=== PATIENT | female | born 1965 | race Caucasian/White ===

== ENCOUNTER 2016-06-07 21:05 | Emergency (ER) | payer MEDICARE ==
[2016-06-07] MEDS ORDERED: hydrOXYzine HCL TAB* 25 MG PO ONE (21:49)
--- NOTE | 2016-06-07 21:58 | ED ---
HPI Chest Pain - HPI Summary HPI Summary: The patient is a 50 year old female presenting for symptoms of anxiety since undergoing right breast biopsy Saturday awaiting results. Reports trying edible marijuana in brownie form approximately 1.5 hours ago. Approximately 30 minutes prior to arrival she began experiencing symptoms of shivers, flushed skin, dry throat, racing heart, chest heaviness, nausea, and inappropriate fear. Denies preceding fever, diaphoresis, headache, neck or jaw pain, cough, sputum production, wheezing, hemoptysis, abdominal pain, vomiting, diarrhea change in voiding, dysuria, hematuria, peripheral edema, unilateral calf pain or swelling. History of HTN "diet and exercise" controlled. Is prescribed klonopin for anxiety but has not tried taking this medication tonight. S/P left clavicle ORIF, left hip graft, and left foot ORIF. Mother and brother with DM. SH: Denies smoking. Rare alcohol use. No IVDU. - History of Current Complaint Time Seen by Provider: 06/07/16 21:37 - Allergy/Home Medications Allergies/Adverse Reactions: Allergies Allergy/AdvReac Type Severity Reaction Status Date / Time Ibuprofen Allergy Mild See Comment Verified 06/04/16 09:49 Poison Jeanien Extract/Poison Allergy Unknown Unknown Verified 06/04/16 09:49 [place] Extra Reaction Details PMH/Surg Hx/FS Hx/Imm Hx Endocrine/Hematology History: Denies: Hx Anticoagulant Therapy, Hx Diabetes, Hx Thyroid Disease Cardiovascular History: Reports: Hx Hypertension Denies: Hx Pacemaker/ICD Respiratory History: Reports: Hx Asthma - not taking meds Denies: Hx Chronic Obstructive Pulmonary Disease (COPD) GI History: Denies: Hx Ulcer Musculoskeletal History: Reports: Hx Back Problems Sensory History: Denies: Hx Hearing Aid Psychiatric History: Denies: Hx Panic Disorder - Cancer History Hx Chemotherapy: No Hx Radiation Therapy: No - Surgical History Surgery Procedure, Year, and Place: 2009 Collar bone repair - [place]. 2006 LEFT foot repair. Rt SHOULDER- CYST(BENIGN) REMOVED-2007 Infectious Disease History: Denies: Hx Hepatitis, Hx Human Immunodeficiency Virus (HIV) - Family History Known Family History: Positive: Unknown - Social History Alcohol Use: Weekly Alcohol Amount: 2 X A MONTH Substance Use Type: Reports: Prescribed Smoking Status (MU): Never Smoked Tobacco Have You Smoked in the Last Year: No Review of Systems Constitutional: Negative Eyes: Negative ENT: Negative Positive: Palpitations, Chest Pain Respiratory: Negative Positive: Nausea Genitourinary: Negative Musculoskeletal: Negative Positive: Other - flushed Neurological: Negative Positive: Anxious All Other Systems Reviewed And Are Negative: Yes Physical Exam Triage Information Reviewed: Yes Vital Signs Reviewed: Yes Appearance: Positive: Well-Appearing, No Pain Distress, Well-Nourished Skin: Positive: Warm, Skin Color Reflects Adequate Perfusion, Dry Head/Face: Positive: Normal Head/Face Inspection Eyes: Positive: Normal, EOMI, BRITNI, Conjunctiva Clear ENT: Positive: Normal ENT inspection, Hearing grossly normal, Pharynx normal. Negative: Pharyngeal erythema Neck: Positive: Supple, Nontender, No Lymphadenopathy, Other: - no thyromegaly Respiratory/Lung Sounds: Positive: Clear to Auscultation, Breath Sounds Present. Negative: Decreased Breath Sounds, Rales, Rhonchi, Wheezes Cardiovascular: Positive: Normal, RRR, Pulses are Symmetrical in both Upper and Lower Extremities, Other - nontender, S1, S2. Negative: Murmur, Rub Abdomen Description: Positive: Nontender, No Organomegaly. Negative: CVA Tenderness (R), CVA Tenderness (L), Distended, Guarding, Hepatomegaly, Splenomegaly Bowel Sounds: Positive: Present Musculoskeletal: Positive: Normal - AROM all extremities. Negative: Lluvia Sign Left, Lluvia Sign Right Neurological: Positive: Normal, Alert, Oriented to Person Place, Time, Facial Symmetry, Speech Normal Psychiatric: Positive: Anxious AVPU Assessment: Alert Diagnostics - Laboratory Result Diagrams: 06/07/16 23:20 06/07/16 23:20 Lab Statement: Any lab studies that have been ordered have been reviewed, and results considered in the medical decision making process. Chest Pain Course/Dx - Course Assessment/Plan: Patient is a 50 female presenting with symptoms after ingesting edible cannabinoid. EKG NSR without acute ischemia. Labs reviewed and grossly unremarkable not requiring any emergent intervention. Patient advised to avoid recreational substances. Advised to take BZD as prescribed by PCP for anxiety. Patient to followup with PCP in 5-7 days. - Diagnoses Provider Diagnoses: Anxiety, Palpitations, Cannabis abuse Discharge - Discharge Plan Condition: Stable Disposition: HOME Patient Education Materials: Palpitations (ED), Cannabis Abuse (ED), Anxiety ( ED) Referrals: Jeffery Ellis DO [Primary Care Provider] -
[2016-06-07 23:35] LABS: Hematocrit 36 % (35-47); Hemoglobin 12.2 g/dl (12.0-16.0); Mean Corpuscular HGB Conc 34 g/dl (31-36); Mean Corpuscular Hemoglobin 29 pg (27-31); Mean Corpuscular Volume 86 fL (80-97); Mean Platelet Volume 8 um3 (7.4-10.4); Red Blood Count 4.19 10^6/ul (4.0-5.4); Red Cell Distribution Width 14 % (10.5-15); White Blood Count 11.7 10^3/ul (3.5-10.8)
[2016-06-07 23:46] LABS: BUN/Creatinine Ratio 19.3 (8-20); EGFR African American 87.8 (>60); EGFR Non-African American 68.3 (>60); Potassium 3.7 mmol/L (3.5-5.0)
[2016-06-08 00:32] LABS: TSH (Thyroid Stimulating Horm) 1.43 mcIU/mL (0.34-5.60)
[2016-06-08 01:26] VITALS: BP 138/71
== END 2016-06-08 01:30 | disposition home or self-care (01) ==
LOC: ED 21:05
DX: F41.9 Anxiety disorder, unspecified (principal); R00.2 Palpitations; F12.10 Cannabis abuse, uncomplicated; I10 Essential (primary) hypertension
CPT/HCPCS: 36415; 80048; 83735; 84443; 85025; 93005; 99283; A9270-GY

== ENCOUNTER → 2016-09-28 06:53 | Day surgery (SDC) | payer MEDICARE ==
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
[~2016-09-28 06:53] MED LIST: Aspirin Low Dose CHEW TAB* 81 MG PO SCH; Buffered Lidocaine 1% SYRIN* 5 ML/SYR SYRINGE ONE; Bupivacaine 0.5% SDV PF* 30 ML VIAL ONE; Bupivacaine 0.5% W/EPI SDV* 30 ML VIAL ONE; Lidocaine 1% INJ* 10 MG/ML 30 ML SDV ONE; Lidocaine 2% PF * 5 ML VIAL ONE; Lidocaine 2.5%/Prilocain 2.5%* 5 GM TUBE ONE; Midazolam* 1 MG/ML 2 ML VIAL (2 MG) ONE; Midazolam* 1 MG/ML 5 ML VIAL (5 MG) ONE; Ondansetron INJ* 2 MG/ML VIAL IV PRN; Propofol* 10 MG/ML 20 ML BTL IV PUSH ONE; Sodium Citrate/Citric Acid* 15 ML UDC ONE; Sodium Citrate/Citric Acid* 15 ML UDC PO ONE; ceFAZolin 2 GM PREMIX(*) 2 GM/50 ML BAG IVPB ONE; fentaNYL* 50 MCG/ML 2 ML VIAL (100 MCG VIAL) IV PRN; fentaNYL* 50 MCG/ML 2 ML VIAL (100 MCG VIAL) ONE; oxyCODONE/Acetamin 5/325 MG* TAB PO PRN
[2016-09-28 07:23] LABS: Manual Entry Verification MR; UR Preg Internal Control QC Line Present
--- NOTE | 2016-09-28 09:23 | RAD ---
INDICATION: Right breast needle localization. COMPARISON: Comparison is made with prior mammograms from September 28, 2016. TECHNIQUE: The benefits and risks of the procedure were explained to the patient. The patient consented to the exam. A timeout was performed before beginning the procedure. The patient was prepped in the usual sterile fashion. The breast was anesthetized with buffered lidocaine. Using digital mammographic guidance a needle was placed immediately between the localization clip from the prior stereotactic biopsy and the small cluster of microcalcifications at the 12:00 position in the right breast. This was exchanged for a Hawkin's type wire. Postprocedure mammograms demonstrate that the wire is in appropriate position located approximately 3 to 4 mm away from the tissue localization clip and cluster of microcalcifications. The patient tolerated the procedure without incident. IMPRESSION: SUCCESSFUL NEEDLE LOCALIZATION PROCEDURE.
[2016-09-28 12:24] VITALS: BP 137/86
--- NOTE | 2016-09-29 00:51 | OP ---
CC: [facility]; Jeffery Ellis DO OPERATIVE REPORT: DATE OF OPERATION: 09/28/16 DATE OF : 67 SURGEON: Gbabie Hunter MD CENTRAL SUPPLY TECHNICIAN: No it assistant for this case. PRE-OP DIAGNOSIS: Right breast mammographic abnormality. POST-OP DIAGNOSIS: Right breast mammographic abnormality. OPERATIVE PROCEDURE: Needle localization, excision of right breast mammographic abnormality. INDICATIONS: This patient is a 50-year-old woman who presented to the office with a recently identi fied mammographic abnormality, which had been biopsied and shown to have some abnormalities that req uired further excision. She was reluctant to undergo surgery at first and waited on repeat mammogra m to confirm the presence of the abnormality but once that did, she agreed to surgery. DESCRIPTION OF PROCEDURE: On the morning of the surgery, she underwent needle localization without difficulty and then brought to the operating room. She was placed on the OR table in the supine pos ition and given IV sedation. The right breast was prepped and draped in the usual sterile fashion. After infiltrating with local anesthetic, an incision was made in an elliptical fashion around the wire and subcutaneous tissue was divided with electrocautery and sharp dissection to excise the mass of tissue from around the wire. Initially, the specimen was transected in a place that did not inc lude the tip of the wire, so additional tissue was removed from posterior that included the tip of t he wire. Then since the tissue had been partially transected, it was completely transected and sent as 2 specimens, the first one with the usual markings and the second one with markings indicating i ts position adjacent to the first specimen. Hemostasis was assured with electrocautery. The wound was irrigated copiously with saline and then additional local was instilled into the wound and closu re was accomplished with 3-0 Polysorb in the subcutaneous layer and the skin was closed with 4-0 Molina gipro in a subcuticular fashion. Steri-Strips and dry sterile dressing were applied. All sponge an d instrument counts were correct. The patient tolerated the procedure well and was transferred to [facility] in a stable condition. [id number]/[facility] #: [id number]
== END | disposition home or self-care (01) ==
LOC: SDS 06:53
PROVIDERS: ATTEND Surgery
DX: R92.0 Mammographic microcalcification found on diagnostic imaging of breast (principal); I10 Essential (primary) hypertension
CPT/HCPCS: 81025; 88307; A9270-GY; J0690; J2001; J2250; J2704; J3010

== ENCOUNTER 2016-10-21 11:36 | Emergency (ER) | payer MEDICARE ==
[2016-10-21 12:02] VITALS: BP 162/78
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
== END 2016-10-21 12:30 | disposition home or self-care (01) ==
LOC: UCEAST 11:36
DX: S30.861A Insect bite (nonvenomous) of abdominal wall, initial encounter (principal); W57.XXXA Bitten or stung by nonvenomous insect and other nonvenomous arthropods, initial encounter; Y93.9 Activity, unspecified; Y92.9 Unspecified place or not applicable; Y99.9 Unspecified external cause status; I10 Essential (primary) hypertension
CPT/HCPCS: 99212; G0463

== ENCOUNTER 2017-02-13 08:16 | Emergency (ER) | payer MEDICARE, OTHER ==
--- NOTE | 2017-02-13 10:07 | UC ---
Respiratory Complaint HPI - HPI Summary HPI Summary: SEVERAL DAYS OF DRAINAGE, SINUS PRESSURE, EAR PAIN, ST AND MILD COUGH. NO FEVER , N/V/D. - History of Current Complaint Chief Complaint: UCRespiratory Stated Complaint: CONGESTION SORE THROAT EAR PAIN Time Seen by Provider: 02/13/17 09:49 Hx Obtained From: Patient Hx Last Menstrual Period: 02/07/17 Onset/Duration: Gradual Onset, Lasting Days, Still Present Severity Initially: Moderate Severity Currently: Moderate Pain Intensity: 2 Pain Scale Used: 0-10 Numeric Character: Cough: Nonproductive Aggravating Factors: Nothing Alleviating Factors: Nothing Associated Signs And Symptoms: Positive: URI, Nasal Congestion, Sinus Discomfort. Negative: Fever, Chills, Pleuritic Chest Pain, Wheezing - Allergies/Home Medications Allergies/Adverse Reactions: Allergies Allergy/AdvReac Type Severity Reaction Status Date / Time Poison Jeanine Extract/Poison Allergy Severe Blisters Verified 02/13/17 08:47 [place] Extra Ibuprofen Allergy Intermediate See Comment Verified 02/13/17 08:47 PMH/Surg Hx/FS Hx/Imm Hx Cardiovascular History: Hypertension Respiratory History: Asthma Other History Of: Negative For: Anticoagulant Therapy - Surgical History Surgical History: Yes Surgery Procedure, Year, and Place: 2009 Collar bone repair - METAL ILANA INSERTED - [place]. LEFT FOOT SURGERY- 1996- [facility] [place]. RIGHT NECK/ SHOULDER- CYST(BENIGN ) REMOVED-2007- [place]. LEFT FX CLAVICLE WITH BONE HAVESTED FROM LEFT HIP 1988 [place] - Family History Known Family History: Positive: Hypertension - Social History Alcohol Use: Occasionally Alcohol Amount: 2 X A MONTH Substance Use Type: None Substance Use Comment - Amount & Last Used: last use this date Smoking Status (MU): Never Smoked Tobacco Have You Smoked in the Last Year: No Review of Systems Constitutional: Negative ENT: Sore Throat, Ear Ache, Nasal Discharge Respiratory: Cough Cardiovascular: Negative Gastrointestinal: Negative All Other Systems Reviewed And Are Negative: Yes Physical Exam Triage Information Reviewed: Yes Appearance: Well-Appearing, No Pain Distress, Well-Nourished Vital Signs: Initial Vital Signs Temp 98.8 F 02/13/17 08:42 Pulse 68 02/13/17 08:42 Resp 20 02/13/17 08:42 Pulse Ox 100 02/13/17 08:42 Vital Signs Reviewed: Yes Eyes: Positive: Conjunctiva Clear ENT: Positive: Hearing grossly normal, Pharynx normal, Other: - RIGHT TM NORMAL. LEFT TM RETRACTED Neck: Positive: Supple, Nontender, No Lymphadenopathy Respiratory Exam: Normal Cardiovascular Exam: Normal Abdomen Description: Positive: Soft Musculoskeletal: Positive: No Edema Neurological: Positive: Alert Psychological: Positive: Age Appropriate Behavior Skin: Negative: rashes UC Diagnostic Evaluation - Laboratory O2 Sat by Pulse Oximetry: 100 Respiratory Course/Dx - Differential Dx/Diagnosis Provider Diagnoses: ACUTE URI Discharge - Discharge Plan Condition: Stable Disposition: HOME Patient Education Materials: Upper Respiratory Infection (ED) Referrals: Jeffery Ellis DO [Primary Care Provider] - If Needed Additional Instructions: YOUR SYMPTOMS ARE LIKELY VIRALLY MEDIATED AND WILL RESOLVE WITH TIME. NO INDICATION FOR ANTIBIOTICS AT PRESENT. REST, HYDRATE, OTC MEDS NEEDED. TRY OTC AFRIN FOR NASAL CONGESTION. OKAY TO USE 2-3 SPRAYS IN EACH NOSTRIL UP TO 2 TIMES DAILY. DO NOT USE FOR MORE THAN 3-4 CONSECUTIVE DAYS TO PREVENT DEVELOPING REBOUND CONGESTION. IF YOU ARE NOT IMPROVING OVER THE NEXT SEVERAL DAYS FOLLOW-UP WITH YOUR PCP OR YOU MAY CALL ME HERE ON SATURDAY FROM 7AM-2:30PM OR SATURDAY/SATURDAY 2:30PM-10PM.
== END 2017-02-13 10:15 | disposition home or self-care (01) ==
LOC: UCEAST 08:16
DX: J06.9 Acute upper respiratory infection, unspecified (principal); J45.909 Unspecified asthma, uncomplicated; I10 Essential (primary) hypertension; Z88.6 Allergy status to analgesic agent
CPT/HCPCS: 99211; G0463

== ENCOUNTER 2017-10-29 23:45 | Emergency (ER) | payer MEDICARE, OTHER ==
[2017-10-30 01:11] VITALS: BP 147/89
--- NOTE | 2017-10-30 01:22 | ED ---
Carolee Boyd Rebecca, scribed for Abad Murrell MD on 10/30/17 at 0018 . Complex/Multi-Sys Presentation - HPI Summary HPI Summary: Pt is a 52 y/o F BIBA who presents to ED c/o anxiety and elevated BP. Reports that she took a half a hydrocodone at noon (about 12 hours [employer]) for chronic back pain and that she "felt like I was racing after that." Has not taken Hydrocodone in multiple weeks and has had previous poor reactions. Then, upon laying down tonight to go to bed she began feeling anxious. States that she gets anxiety easily and has had elevated BP with anxiety previously. PMHx HTN in the past for which she had previously been on medication, though has been controlling it with dietary changes. Recently, her BP has been about 125/77. - History Of Current Complaint Chief Complaint: EDDizziness Time Seen by Provider: 10/29/17 23:56 Hx Obtained From: Patient Onset/Duration: Still Present Severity Currently: None Location: Pain At: - Negative Associated Signs And Symptoms: Positive: Other - Anxiety, elevated BP - Allergies/Home Medications Allergies/Adverse Reactions: Allergies Allergy/AdvReac Type Severity Reaction Status Date / Time ibuprofen Allergy Unknown Verified 10/30/17 00:12 Reaction Details poison nay extract Allergy Unknown Verified 10/30/17 00:13 Reaction Details PMH/Surg Hx/FS Hx/Imm Hx Endocrine/Hematology History: Denies: Hx Anticoagulant Therapy, Hx Diabetes, Hx Thyroid Disease Cardiovascular History: Reports: Hx Hypertension Denies: Hx Pacemaker/ICD, Other Cardiovascular Problems/Disorders Respiratory History: Reports: Hx Asthma - HX OF, NO LONGER TAKING RX Denies: Hx Chronic Obstructive Pulmonary Disease (COPD), Other Respiratory Problems/Disorders GI History: Denies: Hx Ulcer, Other GI Disorders Musculoskeletal History: Reports: Hx Arthritis - right knee, left foot, back, Hx Back Problems Sensory History: Reports: Hx Contacts or Glasses - GLASSES Denies: Hx Hearing Aid Opthamlomology History: Reports: Hx Contacts or Glasses - GLASSES Neurological History: Denies: Other Neuro Impairments/Disorders Psychiatric History: Reports: Hx Anxiety - with stressful times Denies: Hx Panic Disorder - Cancer History Hx Chemotherapy: No Hx Radiation Therapy: No - Surgical History Surgery Procedure, Year, and Place: 2009 Collar bone repair - METAL ILANA INSERTED - [place]. LEFT FOOT [place]- [place] [facility] [place]ECK/ SHOULDER- CYST(BENIGN ) REMOVED-2007- [facility]. LEFT FX CLAVICLE WITH BONE HAVESTED FROM LEFT HIP 1988 [facility] Hx Anesthesia Reactions: No Infectious Disease History: No Infectious Disease History: Denies: Hx Hepatitis, Hx Human Immunodeficiency Virus (HIV), Traveled Outside the [place] in Last 30 Days - Family History Known Family History: Positive: Hypertension - Social History Alcohol Use: Occasionally Alcohol Amount: 2 X A MONTH Substance Use Type: Reports: None Substance Use Comment - Amount & Last Used: last use this date Smoking Status (MU): Never Smoked Tobacco Have You Smoked in the Last Year: No Review of Systems Positive: Other - Elevated BP Positive: Anxious All Other Systems Reviewed And Are Negative: Yes Physical Exam - Summary Physical Exam Summary: Appearance: Well appearing, no pain distress Skin: warm, dry, reflects adequate perfusion Head/face: normal Eyes: EOMI, BRITNI ENT: normal Neck: supple, non-tender Respiratory: CTA, breath sounds present Cardiovascular: RRR, pulses symmetrical Abdomen: non-tender, soft Bowel Sounds: present Musculoskeletal: normal, strength/ROM intact Neuro: normal, sensory motor intact, A&Ox3 Triage Information Reviewed: Yes Vital Signs On Initial Exam: Initial Vitals Temp Pulse Resp BP Pulse Ox 98.9 F 75 14 197/96 99 10/30/17 00:10 10/30/17 00:10 10/30/17 00:10 10/30/17 00:10 10/30/17 00:10 Vital Signs Reviewed: Yes Diagnostics - Vital Signs Vital Signs Temp Pulse Resp BP Pulse Ox 10/30/17 00:10 98.9 F 75 14 197/96 99 - Laboratory Lab Statement: Any lab studies that have been ordered have been reviewed, and results considered in the medical decision making process. - EKG 0020 Cardiac Rate: NL - 70 bpm EKG Rhythm: Sinus Rhythm ST Segment: Normal - normal except for isolated flipped T wave lead 3 EKG Interpretation: nl axis and intervals Re-Evaluation - Re-Evaluation First Eval Re-Evaluation Time: 00:36 Change: Improved Comment: Pt is feeling better. Her BP is down to 169 and her anxiety has decreased. She will follow up with her PCP. Complex Multi-Symp Course/Dx Course Of Treatment: Patient presented by ambulance after feeling poorly post- taking hydrocodone. She feels as though this flared her anxiety. She doesn't like to take any medications. Her blood pressures grossly elevated and she is a little anxious here. She refused any testing aside from an EKG as she was starting to feel better. EKG was largely normal. Her blood pressure spontaneously improved to 165 systolic. She will follow this up with her primary care physician. - Diagnoses Provider Diagnoses: Anxiety, HTN (hypertension), Medication side effect Discharge - Sign-Out/Discharge Documenting (check all that apply): Discharge/Admit/Transfer - Discharge Plan Condition: Improved Disposition: HOME Patient Education Materials: Anxiety (ED) Referrals: Jeffery Ellis DO [Primary Care Provider] - Additional Instructions: Call your doctor first thing in the morning to follow-up. He will need a blood pressure recheck this week. Return if worse, new symptoms or other concerns. Avoid the medication they gave your problems. - Billing Disposition and Condition Condition: IMPROVED Disposition: Home The documentation as recorded by the Carolee chavis Rebecca accurately reflects the service I personally performed and the decisions made by me, Abad Murrell MD.
== END 2017-10-30 01:09 | disposition home or self-care (01) ==
LOC: ED 23:45
DX: F41.9 Anxiety disorder, unspecified (principal); T40.2X5A Adverse effect of other opioids, initial encounter; Y92.9 Unspecified place or not applicable; I10 Essential (primary) hypertension; J45.909 Unspecified asthma, uncomplicated; Z88.6 Allergy status to analgesic agent; Z82.49 Family history of ischemic heart disease and other diseases of the circulatory system
CPT/HCPCS: 93005; 99282

== ENCOUNTER → 2018-02-04 | Emergency (ER) | payer MEDICARE, OTHER ==
[2018-02-04 15:30] VITALS: BP 130/80
== END | disposition left against medical advice (07) ==
LOC: ED 13:17
DX: I10 Essential (primary) hypertension (principal); R42 Dizziness and giddiness; Z53.21 Procedure and treatment not carried out due to patient leaving prior to being seen by health care provider
CPT/HCPCS: 93005

== ENCOUNTER 2018-11-29 12:11 | Emergency (ER) | payer MEDICARE, OTHER ==
[2018-11-29 12:24] VITALS: BP 00/00
--- NOTE | 2018-11-29 12:29 | UC ---
Skin Complaint HPI - HPI Summary HPI Summary: 53-year-old female who has 2 bug bites on her back which she wanted checked for ticks although she does not recall have any ticks present. She denies any symptoms of illness. - History of Current Complaint Chief Complaint: UCSkin Time Seen by Provider: 11/29/18 12:26 Stated Complaint: TICK BITE Hx Obtained From: Patient Hx Last Menstrual Period: 02/07/17 ?: No Onset/Duration: Other - Patient just wanted to be checked for ticks on her back. Skin Exposure Onset/Duration: Hours Ago Timing: Constant Onset Severity: Mild Current Severity: None Pain Intensity: 2 Location: Other - Upper back. Character: Pruritus Aggravating Factor(s): Nothing Alleviating Factor(s): Nothing Related History: Insect Bite/Sting - Allergy/Home Medications Allergies/Adverse Reactions: Allergies Allergy/AdvReac Type Severity Reaction Status Date / Time ibuprofen Allergy Unknown Verified 11/29/18 12:24 Reaction Details poison nay extract Allergy Unknown Verified 11/29/18 12:24 Reaction Details PMH/Surg Hx/FS Hx/Imm Hx Previously Healthy: Yes Cardiovascular History: Hypertension Respiratory History: Asthma Other History Of: Negative For: Anticoagulant Therapy - Surgical History Surgical History: Yes Surgery Procedure, Year, and Place: 2009 Collar bone repair - METAL ILANA INSERTED - [place]. LEFT FOOT SURGERY- 1996- [facility] [place]. RIGHT NECK/ SHOULDER- CYST(BENIGN ) REMOVED-2007- [facility]. LEFT FX CLAVICLE WITH BONE HAVESTED FROM LEFT HIP 1988 [place] - Family History Known Family History: Positive: Hypertension - Social History Alcohol Use: Occasionally Alcohol Amount: 2 X A MONTH Substance Use Type: None Substance Use Comment - Amount & Last Used: last use this date Smoking Status (MU): Never Smoked Tobacco Have You Smoked in the Last Year: No Review of Systems All Other Systems Reviewed And Are Negative: Yes Skin: Positive: Other - Patient has 2 areas on her back she would like to be checked for ticks. Is Patient Immunocompromised?: No Physical Exam Triage Information Reviewed: Yes Appearance: Well-Appearing, No Pain Distress, Well-Nourished Vital Signs: Initial Vital Signs Temp 98 F 11/29/18 12:19 Pulse 100 11/29/18 12:19 Resp 20 11/29/18 12:19 BP 00/00 11/29/18 12:19 Pulse Ox 100 11/29/18 12:19 Vital Signs Reviewed: Yes Skin: Positive: Other - The 2 areas of concern appear to be one very small scabbed area to the left side of her back which looks more like a pimple that she may have scratched. The other area of concern appears to be more of a mosquito bite on her right upper back. I do not believe these are tick bites. Course/Dx - Course Course Of Treatment: Patient is comfortable here she just needed reassurance that she did not have any ticks embedded in her skin. I believe the areas concern are bug bites and not tick bites. - Diagnoses Provider Diagnosis: Insect bite Discharge - Sign-Out/Discharge Documenting (check all that apply): Patient Departure All imaging exams completed and their final reports reviewed: No Studies - Discharge Plan Condition: Good Disposition: HOME Patient Education Materials: Insect Bite or Sting (ED) Referrals: Jeffery Ellis DO [Primary Care Provider] - Additional Instructions: You may apply hydrocortisone cream to the areas as needed for itching. Follow- up with your primary care provider as needed if any worsening symptoms. - Billing Disposition and Condition Condition: GOOD Disposition: Home
== END 2018-11-29 12:34 | disposition home or self-care (01) ==
LOC: UCEAST 12:11
DX: S10.96XA Insect bite of unspecified part of neck, initial encounter (principal); W57.XXXA Bitten or stung by nonvenomous insect and other nonvenomous arthropods, initial encounter; Y92.9 Unspecified place or not applicable; I10 Essential (primary) hypertension; J45.909 Unspecified asthma, uncomplicated
CPT/HCPCS: 99211; G0463

== ENCOUNTER 2019-06-15 12:41 | Emergency (ER) | payer MEDICARE, OTHER ==
--- NOTE | 2019-06-15 14:30 | UC ---
FLU HPI - HPI Summary HPI Summary: 53 yo woman with one week history of congestion and lightheadedness, without fever. Has cough with some phlegm production, off and on sore throat. Concerned because she babysits her grandchildren, who have had flu, and she has them again tomorrow. --grandson was taken to hospital by ambulance due to high fever and seizure like activity. - History of Current Complaint Chief Complaint: UCGeneralIllness Stated Complaint: FLU LIKE SYMPTOMS Time Seen by Provider: 06/15/19 14:23 Hx Obtained From: Patient Hx Last Menstrual Period: 02/07/17 ?: No Onset/Duration: Gradual Onset, Lasting Days - 7 Severity Currently: Mild Severity Initially: Mild Pain Intensity: 0 Associated Signs & Symptoms: Positive: Sore Throat, Nasal Congestion, Diarrhea - loose stools last wek - Allergy/Home Medications Allergies/Adverse Reactions: Allergies Allergy/AdvReac Type Severity Reaction Status Date / Time ibuprofen Allergy Unknown Verified 11/29/18 12:24 Reaction Details poison nay extract Allergy Unknown Verified 11/29/18 12:24 Reaction Details PMH/Surg Hx/FS Hx/Imm Hx Previously Healthy: Yes Respiratory History: Asthma - mild--no recent inhaler use. Other History Of: Negative For: Anticoagulant Therapy - Surgical History Surgical History: Yes Surgery Procedure, Year, and Place: 2009 Collar bone repair - METAL ILANA INSERTED - [place]. LEFT FOOT SURGERY- 1996- [facility]. RIGHT NECK/ SHOULDER- CYST(BENIGN ) REMOVED-2007- [facility]. LEFT FX CLAVICLE WITH BONE HAVESTED FROM LEFT HIP 1988 [facility] - Family History Known Family History: Positive: Hypertension - Social History Occupation: Employed Part-time Lives: With Family Alcohol Use: Weekly Alcohol Amount: 2 X A MONTH Substance Use Type: None Substance Use Comment - Amount & Last Used: last use this date Smoking Status (MU): Never Smoked Tobacco Have You Smoked in the Last Year: No Review of Systems All Other Systems Reviewed And Are Negative: Yes Constitutional: Positive: Fatigue Skin: Positive: Negative Eyes: Positive: Negative ENT: Positive: Sore Throat, Nasal Discharge Respiratory: Positive: Cough. Negative: Shortness Of Breath Cardiovascular: Negative: Palpitations, Chest Pain Gastrointestinal: Positive: Other - loose stools Genitourinary: Positive: Negative Motor: Positive: Negative Neurovascular: Positive: Negative Musculoskeletal: Positive: Negative Neurological: Positive: Other - lightheaded Psychological: Positive: Negative Is Patient Immunocompromised?: No Physical Exam Triage Information Reviewed: Yes Appearance: Well-Appearing, No Pain Distress, Obese Vital Signs: Initial Vital Signs Temp 99.0 F 06/15/19 13:24 Pulse 88 06/15/19 13:24 Resp 16 06/15/19 13:24 Pulse Ox 100 06/15/19 13:24 Eye Exam: Normal ENT: Positive: Pharyngeal erythema - mild, TMs normal Neck: Positive: Supple, Nontender, No Lymphadenopathy Respiratory: Positive: Lungs clear, Normal breath sounds, No respiratory distress Cardiovascular: Positive: RRR, No Murmur Musculoskeletal Exam: Normal Neurological Exam: Normal Psychological Exam: Normal Skin Exam: Normal Diagnostics - Laboratory Lab Results: rapid flu negative Flu Course/Dx - Course Course Of Treatment: continue symptomatic treatment of viral uri - Differential Dx/Diagnosis Differential Diagnosis/HQI/PQRI: Influenza, Upper Respiratory Infection Provider Diagnosis: URI with cough and congestion Discharge ED - Sign-Out/Discharge Documenting (check all that apply): Patient Departure All imaging exams completed and their final reports reviewed: No Studies - Discharge Plan Condition: Stable Disposition: HOME Patient Education Materials: Upper Respiratory Infection (ED) Referrals: Jeffery Ellis DO [Primary Care Provider] - Additional Instructions: Continue symptomatic treatment of vrial illness. Your flu testing is negative. Follow up if you have fever, increasing cough, or shortness of breath. - Billing Disposition and Condition Condition: STABLE Disposition: Home
[2019-06-15 14:53] LABS: Influenza A Molecular Negative (Negative); Influenza B Molecular Negative (Negative)
== END 2019-06-15 15:05 | disposition home or self-care (01) ==
LOC: UCEAST 12:41
DX: J06.9 Acute upper respiratory infection, unspecified (principal); R05 Cough; R09.81 Nasal congestion; E66.9 Obesity, unspecified; Z88.8 Allergy status to other drugs, medicaments and biological substances; Z91.09 Other allergy status, other than to drugs and biological substances
CPT/HCPCS: 99211; G0463